=== PATIENT | male | born 1990 | race Caucasian/White ===

== ENCOUNTER 2024-03-19 09:13 | Outpatient (REF) | payer OTHER, SELFPAY ==
[2024-03-19 09:56] LABS: MANUAL DIFF FLAG NO
[2024-03-19 10:05] LABS: Basophils Absolute Auto 0.1 X10*3/uL (0.0-0.2); Basophils Percent Auto 0.8 % (0-2); Eosinophils Absolute Auto 0.3 X10*3/uL (0.0-0.4); Eosinophils Percent Auto 3.5 % (0-4); Hematocrit 45.6 % (42.0-52.0); Hemoglobin 15.4 g/dl (14.0-18.0); Imm Gran Abs Auto 0.07 X10*3/uL (0.00-0.03); Imm Gran Pct Auto 0.8 % (0.0-0.4); Lymphocytes Absolute Auto 3.1 X10*3/uL (1.2-4.9); Lymphocytes Percent Auto 37.2 % (20-40); Mean Corpuscular HGB Conc 33.8 g/dl (31.0-36.0); Mean Corpuscular Hemoglobin 29.1 pg (27.0-33.0); Mean Platelet Volume 9.4 fL (9.4-12.4); Monocytes Absolute Auto 0.8 X10*3/uL (0.1-1.2); Monocytes Percent Auto 9.2 % (2-11); Neutrophils Absolute Auto 4.1 x10*3/uL (2.0-8.3); Neutrophils Percent Auto 48.5 % (45-73); Platelet Count 386 X10*3/uL (160-400); Red Cell Distribution Width 12.2 % (11.0-16.0); White Blood Count 8.4 X10*3/uL (4.8-10.8)
[2024-03-19 14:20] LABS: Albumin Level 4.7 g/dL (3.5-5.0); Alkaline Phosphatase 88 U/L (39-117); Anion Gap 11 (12-20); Aspartate Amino Transferase 40 U/L (5-37); Bilirubin Total 0.8 mg/dL (0.0-1.0); Blood Urea Nitrogen 13 mg/dL (9-16); Calcium 9.9 mg/dL (8.4-10.2); Carbon Dioxide 27 mmol/L (22-29); Chloride 106 mmol/L (96-108); Cholesterol 191 mg/dL (<200); Estimated Glomerular Filt Rate > 60; Glucose Fasting 99 mg/dL (60-99); HDL Cholesterol 45 mg/dL (>40); LDL Cholesterol Calculated 106 mg/dL (<100); Potassium 4.3 mmol/L (3.3-5.1); Sodium 140 mmol/L (135-145); Total Protein 7.6 g/dL (6.5-8.0); Triglycerides 204 mg/dL (<150)
[2024-03-19 14:37] LABS: Alanine Aminotransferase 87 U/L (0-40)
== END 2024-03-19 09:14 | disposition home or self-care (01) ==
LOC: HO.HMGCLDS 09:13
PROVIDERS: PCP Internal Medicine; Visit Provider Internal Medicine
DX: Z00.00 Encounter for general adult medical examination without abnormal findings (principal); R53.83 Other fatigue; E78.5 Hyperlipidemia, unspecified
CPT/HCPCS: 36415; 80053; 80061; 85025

== ENCOUNTER 2024-05-21 07:41 | Outpatient (AMB) | payer OTHER, SELFPAY ==
--- NOTE | 2024-05-21 08:02 | A.OFFVIS_ITS ---
Intake Visit Reasons: history of kidney stones Intake Note: New Patient presents for initial visit for kidney stones Urology Medications: none Blood Thinner: none Slide Developer Required: No Accompanied by: Self / Same As Patient Allergies No Known Allergies Allergy (Verified 05/21/24 08:28) Medication List - Last Reconciled 05/21/24 by JENNIFER Bains fluticasone propionate 50 mcg/actuation intranasal omeprazole mg PO HPI Comments Details: Baron is a very pleasant 33-year-old male patient of Dr. Smiley. He has a past medical history of obesity, nephrolithiasis, and allergic rhinitis. He presents to the office today as a new patient for nephrolithiasis. In discussion with the patient today he reports having had a longstanding history of nephrolithiasis over the last 6-7 years however has only followed up with his PCP regarding this issue and most recently recommendations were made for urology referral for further assessment evaluation. He currently denies any bothersome urinary issues or concerns however describes having had an episode of passage of stone a few weeks ago. In office urinalysis results reviewed with the patient today. He denies any previous surgical history of nephrolithiasis. We discussed at length potential causes of nephrolithiasis as well as further workup to include imaging, [facility], and labs. He denies urinary urgency, urinary frequency, incontinence, nocturia, hematuria, dysuria, foul smelling urine, changes to urinary stream, flank pain, fever, and or chills.He is happy with his current voiding parameters. He reports to be drinking approximately 60 oz of water a day. We discussed obtaining renal ultrasound for further assessment evaluation. We also discussed stone prevention at length. All questions were answered. [facility] Medical History History of kidney stones Allergic rhinitis Obesity Review of Systems Const All systems reviewed & are unremarkable except as noted in HPI and below Physical Exam Const General: cooperative, healthy appearing, comfortable, no acute distress, well developed, alert and awake Orientation/consciousness: patient oriented x3 Limitations: no limitations HEENT Head: Yes normal to inspection, Yes normocephalic and Yes atraumatic Ears: hearing grossly normal bilaterally Eyes General: appearance normal, both eyes and all related structures Neck Neck: Yes normal visual inspection and Yes trachea midline Chest Chest palpation & inspection: normal inspection of the chest Resp Effort & Inspection: normal respiratory effort and able to speak in complete sentences Cardio Rate: regular rate GI Inspection: Yes normal to inspection General: Yes no CVA tenderness Back/Spine/Pelvis Back: no CVA tenderness Skin General skin exam: no rashes or lesions noted Neuro General: patient oriented x3 Extrem General: Yes normal to inspection Psych Appearance: grossly normal and well kempt Mental Status: mental status grossly normal Speech and movement: Normal speech and movement present and Clear speech present Affect: normal affect Attitude: cooperative Thought process: Normal thought process present Thought content: Normal thought content present Insight: Fair insight present (Psych) Judgement: Fair judgement present (Psych) Results AMB Urinalysis, Automated UA Leukoctes 0 Emma/uL Last Edit by [employer] on 05/21/24 08:11 UA Nitrite Last Edit by [employer] on 05/21/24 08:11 UA Urobilinogen 0.2 mg/dL Last Edit by [employer] on 05/21/24 08:11 UA Protein 15 mg/dL Last Edit by [employer] on 05/21/24 08:11 UA pH 6.0 Last Edit by [employer] on 05/21/24 08:11 UA Blood 10 Wale/uL Last Edit by [employer] on 05/21/24 08:11 UA Specific [place] 1.020 Last Edit by [employer] on 05/21/24 08:11 UA Ketone Last Edit by [employer] on 05/21/24 08:11 UA Bilirubin 0 mg/dL Last Edit by [employer] on 05/21/24 08:11 UA Glucose 0 mg/dL Last Edit by [employer] on 05/21/24 08:11 Results Reviewed Results Reviewed: Laboratory Last Values Urine pH (Auto) 6.0 05/21/24 08:03 Specific [place] (Auto) 1.020 05/21/24 08:03 Urine Protein (Auto) 15 mg/dL 05/21/24 08:03 Glucose (UA)(Auto) 0 mg/dL 05/21/24 08:03 Urine Blood (Auto) 10 Wale/uL 05/21/24 08:03 Urine Bilirubin (Auto) 0 mg/dL 05/21/24 08:03 Urine Urobilinogen (Auto) 0.2 mg/dL 05/21/24 08:03 Leukocyte Esterase (Auto) 0 Emma/uL 05/21/24 08:03 Assessment & Plan Assessment & Plan (1) Nephrolithiasis: Code(s): N20.0 - Calculus of kidney Category: Medical Plan In office urinalysis results reviewed with the patient today; as noted above. We discussed at length potential causes of nephrolithiasis as well as further workup. Discussed, educated, and stressed the importance of adequate hydration relation to nephrolithiasis as well as overall health and well-being. Patient currently denies any bothersome urinary issues. He reports be happy with current voiding parameters. Will obtain renal ultrasound. Discussed adding 1 oz of lemon juice to water daily. Follow-up in 1-3 months with imaging to be completed prior; or sooner with any issues, concerns, and or questions. Orders: Orders US renal BI Today N20.0 - Calculus of kidney AMB Urinalysis Automated Today Z13.9 - Encounter for screening, unspecified Patient Instructions: The patient had an opportunity to ask questions regarding the treatment plan. All questions were answered. Physical exam, labs, and imaging were discussed and reviewed in detail. As well as risks, benefits, and discussion of treatment choices. No major barriers to understanding were identified. The patient expressed understanding and agreement with the above treatment plan. The patient was made aware they should contact our office by phone for worsening of their current condition, the appearance of new symptoms, or with any questions or concerns. Compliance is encouraged with any medications and follow up testing that is ordered. It is a privilege to be allowed the opportunity to participate in? your urological care.? Again, if you have any questions or concerns If you have any questions or concerns please do not hesitate to contact me. The office is [phone]. This note is constructed using voice recognition software. While every effort has been made to ensure accuracy potash flaker errors may have been included. Yours sincerely, Ce Calixto PREFORM MACHINE OPERATOR- Coding Level of Care Code New Pt Level 3 (77937) Diagnoses Nephrolithiasis N20.0
== END 2024-05-21 08:24 | disposition home or self-care (01) ==
LOC: HO.HUSH 07:42
PROVIDERS: PCP Internal Medicine; Visit Provider Nurse Practitioner Family
DX: N20.0 Calculus of kidney (principal); Z13.9 Encounter for screening, unspecified
CPT/HCPCS: 99203

== ENCOUNTER → 2024-05-21 07:41 | Outpatient (BNVA) | payer OTHER, SELFPAY | PROVIDERS: PCP Internal Medicine; Visit Provider Nurse Practitioner Family | DX: N20.0 Calculus of kidney (principal) | CPT/HCPCS: 81003 ==

== ENCOUNTER 2024-07-22 07:57 | Outpatient (REF) | payer OTHER, SELFPAY ==
--- NOTE | ~2024-07-22 | US_ITS ---
EXAMINATION: US RETROPERITONEAL LIMITED (RENAL ONLY) CLINICAL INFORMATION: Calculus of kidney. COMPARISON: None available. TECHNIQUE: Real-time imaging of the kidneys. FINDINGS: RIGHT KIDNEY: 12.5 x 5.6 x 6.0 cm (SAG x AP x TRV). The kidney is normal in size, contour, and echogenicity. Renal cortical thickness is normal. No focal parenchymal lesions. No hydronephrosis. There are 4 nonobstructing calculi identified throughout the kidney, largest in the upper pole measuring 8 mm, second largest in the lower pole measuring 7 mm. LEFT KIDNEY: 11.5 x 6.3 x 4.7 cm (SAG x AP x TRV). The kidney is normal in size, contour, and echogenicity. Renal cortical thickness is normal. No focal parenchymal lesions. No hydronephrosis. There are 4 nonobstructing calculi identified throughout the kidney, largest in the midpole measuring 8 mm, and second largest in the lower pole measuring 8 mm. US/US renal BI IMPRESSION: Bilateral nonobstructing nephrolithiasis. No hydronephrosis. Electronically signed by: Liborio Carrillo MD 07/22/2024 10:06 AM EDT
== END 2024-07-22 07:58 | disposition home or self-care (01) ==
LOC: HO.US 07:57
PROVIDERS: PCP Internal Medicine; Visit Provider Nurse Practitioner Family
DX: N20.0 Calculus of kidney (principal)
CPT/HCPCS: 76775

== ENCOUNTER → 2024-07-22 07:59 | Outpatient (BNV) | payer OTHER, SELFPAY | PROVIDERS: PCP Internal Medicine; Visit Provider Radiology Diagnostic Radiology | DX: N20.0 Calculus of kidney (principal) | CPT/HCPCS: 76775 ==

== ENCOUNTER 2024-08-07 07:33 | Outpatient (AMB) | payer OTHER, SELFPAY ==
--- NOTE | 2024-08-07 07:47 | A.OFFVIS_ITS ---
Intake Visit Reasons: 2 month US(set) Intake Note: Patient presents today for follow up on: kidney stones and ultrasound results Imaging Completed: 07/22/24 Urology Medications: none Blood Thinner: none Ornamental Ironworker Required: No Accompanied by: Self / Same As Patient Allergies No Known Allergies Allergy (Verified 08/07/24 08:13) Medication List - Last Reconciled 08/07/24 by JENNIFER Bains fluticasone propionate 50 mcg/actuation intranasal melatonin mg PO PRN omeprazole mg PO HPI Comments Details: Baron is a very pleasant 33-year-old male patient of . He has a past medical history of obesity, nephrolithiasis, and allergic rhinitis. He presents to the office today for follow-up. Of note, patient was seen approximately 2 months ago as a new patient for nephrolithiasis at which time a renal ultrasound was ordered for further assessment evaluation. These results were reviewed and communicated with the patient today 08/04 bilateral kidneys are normal in size, contour, and echogenicity. Renal cortical thickness is normal. No focal lesions or hydronephrosis noted bilaterally. There are multiple nonobstructing calculi throughout both kidneys largest measuring 8 mm. He discusses his long standing history of nephrolithiasis however never requiring surgical intervention. We did discuss further treatment options and risks and benefits of these treatment options to include ESWL verses ureteroscopy verses surveillance monitoring. He does feel he has episodes of bilateral flank pain however feels they are infrequent and is managing well independently. We will continue with surveillance monitoring at this time. In office urinalysis results reviewed with the patient today. He otherwise denies any bothersome urinary issues. He denies urinary urgency, urinary frequency, incontinence, nocturia, hematuria, dysuria, foul smelling urine, changes to urinary stream, flank pain, fever, and or chills. He is happy with his current voiding parameters. He reports to be drinking approximately 60-80 oz of water a day and has been adding lemon juice as discussed. We also discussed stone prevention at length. All questions were answered. He otherwise offers no other issues or concerns at this time. [facility] Medical History History of kidney stones Allergic rhinitis Obesity Review of Systems Const All systems reviewed & are unremarkable except as noted in HPI and below Physical Exam Const General: cooperative, healthy appearing, comfortable, no acute distress, well developed, alert and awake Orientation/consciousness: patient oriented x3 Limitations: no limitations HEENT Head: Yes normal to inspection, Yes normocephalic and Yes atraumatic Ears: hearing grossly normal bilaterally Eyes General: appearance normal, both eyes and all related structures Neck Neck: Yes normal visual inspection and Yes trachea midline Chest Chest palpation & inspection: normal inspection of the chest Resp Effort & Inspection: normal respiratory effort and able to speak in complete sentences Cardio Rate: regular rate GI Inspection: Yes normal to inspection General: Yes no CVA tenderness Back/Spine/Pelvis Back: no CVA tenderness Skin General skin exam: no rashes or lesions noted Neuro General: patient oriented x3 Extrem General: Yes normal to inspection Psych Appearance: grossly normal and well kempt Mental Status: mental status grossly normal Speech and movement: Normal speech and movement present and Clear speech present Affect: normal affect Attitude: cooperative Thought process: Normal thought process present Thought content: Normal thought content present Insight: Fair insight present (Psych) Judgement: Fair judgement present (Psych) Results AMB Urinalysis, Automated UA Leukoctes 0 Emma/uL Last Edit by Romeo Choudhury on 08/07/24 08:00 UA Nitrite Last Edit by Romeo Choudhury on 08/07/24 08:00 UA Urobilinogen 0.2 mg/dL Last Edit by Romeo Choudhury on 08/07/24 08:00 UA Protein 0 mg/dL Last Edit by Romeo Choudhury on 08/07/24 08:00 UA pH 6.0 Last Edit by Romeo Choudhury on 08/07/24 08:00 UA Blood 0 Wale/uL Last Edit by Romeo Choudhury on 08/07/24 08:00 UA Specific [place] 1.015 Last Edit by Romeo Choudhury on 08/07/24 08:00 UA Ketone Last Edit by Romeo Choudhury on 08/07/24 08:00 UA Bilirubin 0 mg/dL Last Edit by Romeo Choudhury on 08/07/24 08:00 UA Glucose 0 mg/dL Last Edit by Romeo Choudhury on 08/07/24 08:00 Results Reviewed Results Reviewed: Laboratory Last Values Urine pH (Auto) 6.0 08/07/24 07:52 Specific [place] (Auto) 1.015 08/07/24 07:52 Urine Protein (Auto) 0 mg/dL 08/07/24 07:52 Glucose (UA)(Auto) 0 mg/dL 08/07/24 07:52 Urine Blood (Auto) 0 Wale/uL 08/07/24 07:52 Urine Bilirubin (Auto) 0 mg/dL 08/07/24 07:52 Urine Urobilinogen (Auto) 0.2 mg/dL 08/07/24 07:52 Leukocyte Esterase (Auto) 0 Emma/uL 08/07/24 07:52 Date of Service: 07/22/24 Procedure(s): US renal BI FINDINGS: RIGHT KIDNEY: 12.5 x 5.6 x 6.0 cm (SAG x AP x TRV). The kidney is normal in size, contour, and echogenicity. Renal cortical thickness is normal. No focal parenchymal lesions. No hydronephrosis. There are 4 nonobstructing calculi identified throughout the kidney, largest in the upper pole measuring 8 mm, second largest in the lower pole measuring 7 mm. LEFT KIDNEY: 11.5 x 6.3 x 4.7 cm (SAG x AP x TRV). The kidney is normal in size, contour, and echogenicity. Renal cortical thickness is normal. No focal parenchymal lesions. No hydronephrosis. There are 4 nonobstructing calculi identified throughout the kidney, largest in the midpole measuring 8 mm, and second largest in the lower pole measuring 8 mm. IMPRESSION: Bilateral nonobstructing nephrolithiasis. No hydronephrosis. Assessment & Plan Assessment & Plan (1) Nephrolithiasis: Code(s): N20.0 - Calculus of kidney Category: Medical Plan In office urinalysis results reviewed with the patient today; as noted above. Recent renal imaging results reviewed with the patient today; as noted above. We discussed further treatment options of stone burden to include ESWL versus ureteroscopy verses surveillance monitoring; risks and benefits of these interventions were discussed Will continue with surveillance monitoring. Discussed, educated, and stressed the importance of adequate hydration relation to nephrolithiasis as well as overall health and well-being. Start vitamin B6 as discussed and prescribed Continue adding 1 oz of lemon juice to water daily. He currently denies any bothersome urinary issues or concerns. He reports be happy with current voiding parameters. Follow-up in 4-[address] [facility]; or sooner with any issues, concerns, and or questions. Orders: Orders CT kidney stone 4 Months N20.0 - Calculus of kidney AMB Urinalysis Automated Today Z13.9 - Encounter for screening, unspecified Medications: New pyridoxine (vitamin B6) 100 mg PO DAILY 90 days 90 tabs 3RF N20.0 - Calculus of kidney Patient Instructions: The patient had an opportunity to ask questions regarding the treatment plan. All questions were answered. Physical exam, labs, and imaging were discussed and reviewed in detail. As well as risks, benefits, and discussion of treatment choices. No major barriers to understanding were identified. The patient expressed understanding and agreement with the above treatment plan. The patient was made aware they should contact our office by phone for worsening of their current condition, the appearance of new symptoms, or with any questions or concerns. Compliance is encouraged with any medications and follow up testing that is ordered. It is a privilege to be allowed the opportunity to participate in? your urological care.? Again, if you have any questions or concerns If you have any questions or concerns please do not hesitate to contact me. The office is [phone]. This note is constructed using voice recognition software. While every effort has been made to ensure accuracy monorail charger operator errors may have been included. Yours sincerely, JENNIFER Bains Coding Level of Care Code Est Pt Level 4 (02266) Diagnoses Nephrolithiasis N20.0
== END 2024-08-07 08:24 | disposition home or self-care (01) ==
LOC: HO.HUSH 07:34
PROVIDERS: PCP Internal Medicine; Visit Provider Nurse Practitioner Family
DX: N20.0 Calculus of kidney (principal); Z13.9 Encounter for screening, unspecified
CPT/HCPCS: 99214

== ENCOUNTER → 2024-08-07 07:33 | Outpatient (BNVA) | payer OTHER, SELFPAY | PROVIDERS: PCP Internal Medicine; Visit Provider Nurse Practitioner Family | DX: N20.0 Calculus of kidney (principal); Z13.9 Encounter for screening, unspecified | CPT/HCPCS: 81003 ==

== ENCOUNTER 2024-09-17 14:05 | Outpatient (AMB) | payer OTHER, SELFPAY ==
--- NOTE | 2024-09-17 14:20 | A.OFFPC_ITS ---
Vital Signs 09/17/24 14:52 Height 5 ft 8 in Weight 262 lb 0.2 oz BMI 39.8 BP 122/68 Blood Pressure Location Rt brachial Pulse 78 Pulse Source Pulse Oximeter Temp 99 F Pulse Oximetry (%) 100 Intake Visit Reasons: Establish Care Intake Note: Seeing Urology in [place] to have surgery to remove kidney stones, every few days he says he gets a chest flutter. Would also like to talk about the weight loss drug. Allergies No Known Allergies Allergy (Verified 09/17/24 14:58) Medication List - Last Reconciled 09/17/24 by Linda Durán PA-C fluticasone propionate 50 mcg/actuation intranasal melatonin mg PO PRN omeprazole mg PO pyridoxine (vitamin B6) 100 mg PO DAILY 90 days Tobacco use date assessed: 09/17/24 Dental Screening Dental Screen Date: 09/17/24 Did you have a dental visit in the last 12 months?: Yes Did you have a dental problem in the last 6 months where you did not have access to dental care?: No Was dental information given to patient?: No HPI Establish Care HPI Details The patient is a 33-year-old male presenting for a new patient visit and management of chronic conditions. The patient reports a history of insomnia for which he takes melatonin. He has not undergone a sleep study and feels rested upon waking despite difficulty falling asleep. He is currently on omeprazole for Gastroesophageal Reflux Disease (GERD). The patient has a history of nephrolithiasis and is under nephrology care. He takes vitamin B6 for kidney stones and reports having multiple stones on both sides, with some as large as 8 mm. His recent blood work showed elevated liver enzymes with AST at 40 and ALT at 87, and elevated triglycerides at 204 mg/dL. His LDL cholesterol was 106 mg/dL, which is slightly above the desired level. The patient is prediabetic, with an A1c indicating borderline levels. He has been advised to manage his diet to prevent progression to diabetes. He reports experiencing heart palpitations once or twice a year, without associated chest pain or shortness of breath. He has been referred for an outpatient EKG and a three-day Holter monitor to further evaluate these symptoms. [facility] Medical History (Updated 09/18/24 @ 13:16 by Linda Durán PA-C) Hyperlipidemia Hypertriglyceridemia Pre-diabetes GERD (gastroesophageal reflux disease) Insomnia Obesity (BMI 30-39.9) Body mass index [BMI] 39.0-39.9, adult Establishing care with new doctor, encounter for Heart palpitations History of kidney stones Allergic rhinitis Obesity Social History Housing: House Patient Tobacco Use Status: Former Tobacco user Tobacco use type: Cigarette Cigarettes Per Day: 2 Years Smoked: 5 or 6 years e-Cigarette/Vaping Use: Former Use service: No Questionnaire PHQ-9 Over the last 2 weeks, how often have you been bothered by any of the following problems? 1. Little interest or pleasure in doing things: not at all 2. Feeling down, depressed, or hopeless: not at all 3. Trouble falling or staying asleep, or sleeping too much: not at all 4. Feeling tired or having little energy: not at all 5. Poor appetite or overeating: not at all 6. Feeling bad about yourself - or that you are a failure or have let yourself or your family down: not at all 7. Trouble concentrating on things, such as reading the newspaper or watching television: not at all 8. Moving or speaking so slowly that other people could have noticed. Or the opposite - being so fidgety or restless that you have been moving around a lot more than usual: not at all 9. Thoughts that you would be better off or of hurting yourself in some way: not at all Total score: 0 Depression Screening Interpretation: Negative Depression Screening Done: Yes 18696 - PHQ-9 Billing: Yes Source: Developed by Drs. Sean Mortensen, Daniela Parr, Gautam Howard and colleagues, with an educational atiya from [employer]. Thrive Questionnaire Date Thrive assessed: 09/17/24 I am a: Patient What is your living situation today?: I have a steady place to live Within the past 12 months, did the food you bought not last and you didn't have the money to get more?: Never true Within the past 12 months, did you worry whether your food would run out before you got money to buy more?: Never true Do you have trouble paying for medicines?: No Do you have trouble getting transportation to medical appointments?: No Do you have trouble paying your heating and electricity bill?: No Do you have trouble taking care of your child, family member or friend?: No Do you have trouble with day-to-day activities such as bathing, preparing meals, shopping, managing finances, etc.?: No Are you currently unemployed and looking for a job?: No Are you interested in more education?: No THRIVE Score: 0 AUDIT C Alcohol Use Questionnaire (AUDIT-C) 1. How often do you have a drink containing alcohol?: 2-4 times a month 2. How many drinks containing alcohol do you have on a typical day when you are drinking?: 1 or 2 3. How often do you have six or more drinks on one occasion?: Never Total Score: 2 Score Reviewed/Action Taken: No GATO-7 AMB Questionnaire GATO-7 Date GATO - 7 assessed: 09/17/24 Feeling nervous, anxious, or on edge: 0 = Not at all Not being able to stop or control worryin = Not at all Worrying too much about different things: 0 = Not at all Trouble relaxin = Not at all Being so restless that it is hard to sit still: 0 = Not at all Becoming easily annoyed or irritable: 0 = Not at all Feeling afraid as if something awful might happen: 0 = Not at all Total GATO-7 score (0-4 normal; 5-9 mild; 10-14 moderate; 15-21 severe): 0 Source: Developed by Drs. Sean Mortensen, Daniela Parr, Gautam Howard and colleagues, with an educational atiya from [employer]. GATO-7 Assessment Billing GATO-7 Assessment Tool: GATO-7 Assessment 14291 Review of Systems Const Details: - General: Denies unintentional weight gain or weight loss. - Cardiovascular: Reports heart palpitations once or twice a year. Denies chest pain or shortness of breath. - Gastrointestinal: Denies abdominal pain. Reports use of omeprazole for GERD. - Genitourinary: Reports history of nephrolithiasis. Denies hematuria. Physical exam (Primary Care) Vital Signs: Last Vital Signs Temp 99 F 09/17/24 14:52 Pulse 78 09/17/24 14:52 BP 122/68 09/17/24 14:52 Pulse Ox 100 07/08/25 14:52 Care Plan Goal for BP management: <140/90 at Goal BMI result Body Mass Index 39.8 BMI Assessment/Plan discussion: High BMI High, discussed plan: lifestyle, weight reduction, dietary, physical activity and alcohol moderation Tobacco/Smoking Status: Tobacco use Status Tobacco use date assessed 09/17/24 09/17/24 14:50 Patient Tobacco Use Status Former Tobacco user 09/17/24 14:50 Tobacco use type Cigarette 09/17/24 14:50 e-Cigarette/Vaping Use Former Use 09/17/24 14:50 PHQ-9: PHQ-9 Score PHQ-9: Total score 0 09/17/24 15:19 Depression Screening Interpretation: Negative Thrive Assessment: Date of Thrive Assessment Date Thrive assessed 09/17/24 09/17/24 14:50 Const Other: Appearance: Alert. Oriented X3. No acute distress. Head: Normal external exam. Normocephalic. Atraumatic. Eyes: Pupils are equal, round, and reactive to light. Extraocular movements intact. Conjunctiva and sclera normal. Eyelids normal. Ears: External auditory canal normal. Tympanic membranes normal. Throat: Pharynx normal. Uvula midline. Moist mucous membranes. Neck: Normal inspection. Neck supple. Full range of motion. No adenopathy. Thyroid Normal. No meningeal signs. No neck mass noted. Cardiovascular: Normal heart rate and rhythm. Heart sound normal. No murmurs noted. Pulses normal throughout. Respiratory: No respiratory distress. Painless inspiration. Breath sounds normal. No wheezes/rales/rhonchi noted. Chest nontender. No accessory muscle usage noted or decreased air movement noted. Abdomen: Soft and nontender. Bowel sounds normal in all 4 quadrants. No distention noted. No organomegaly noted. No visible injury noted. Back: No costovertebral angle tenderness. Full range of motion noted. Skin: Skin warm and dry. Normal skin color. Normal skin turgor. No rashes/lesions/lacerations noted. Extremities: No lower extremity edema. Extremities exhibit normal range of motion. Extremities nontender. Neuro: Oriented X 3. No motor deficit. No sensory deficit. Reflexes normal. Results AMB Hemoglobin A1c AMB Hemoglobin A1c 5.6 % Last Edit by SENG Stanford on 09/17/24 15:19 Results Reviewed Results Reviewed: Laboratory Last Values Hgb A1c (Clinic) 5.6 % (4.0-6.0) 09/17/24 15:17 - Labs: Normal CBC, elevated AST (40) and ALT (87), elevated triglycerides (204 mg/dL), LDL cholesterol (106 mg/dL). - Imaging: Renal ultrasound showed bilateral nephrolithiasis with stones up to 8 mm. Coding Level of Care Code New Pt Level 5 (42555) Complex EM visit Add On G2211 Diagnoses Establishing care with new doctor, encounter for Z76.89 Insomnia G47.00 GERD (gastroesophageal reflux disease) K21.9 Nephrolithiasis N20.0 Pre-diabetes R73.03 Heart palpitations R00.2 Body mass index [BMI] 39.0-39.9, adult Z68.39 Hypertriglyceridemia E78.1 Hyperlipidemia E78.5 Additional Codes GATO-7 Assessment Billing - GATO-7 Assessment Tool: GATO-7 Assessment 07048 ([id number]) PHQ-9 - 81124 - PHQ-9 Billing: Yes ([id number]) Assessment & Plan Assessment & Plan (1) Establishing care with new doctor, encounter for: Code(s): Z76.89 - Persons encountering health services in other specified circumstances Category: Medical (2) Insomnia: Code(s): G47.00 - Insomnia, unspecified Category: Medical Plan: The patient is advised to continue using melatonin for insomnia. No sleep study is planned at this time as the patient reports feeling rested upon waking. Condition is chronic and stable continue to monitor. (3) GERD (gastroesophageal reflux disease): Code(s): K21.9 - Gastro-esophageal reflux disease without esophagitis Category: Medical Plan: The patient is advised to continue omeprazole for management of GERD symptoms. Condition is chronic and stable will continue to monitor. (4) Nephrolithiasis: Code(s): N20.0 - Calculus of kidney Category: Medical Plan: The patient is under nephrology care for nephrolithiasis and takes vitamin B6. He is advised to continue current management and follow up with nephrology as needed. Condition is chronic and stable will continue to monitor. (5) Pre-diabetes: Code(s): R73.03 - Prediabetes Category: Medical Plan: The patient is advised to manage diet and exercise to prevent progression to diabetes. Referral to weight management and consideration of metformin were discussed. Condition is chronic and stable will continue to monitor. (6) Heart palpitations: Code(s): R00.2 - Palpitations Category: Medical Plan: The patient is referred for an outpatient EKG and a three-day Holter monitor to evaluate heart palpitations. Follow-up is planned based on results. (7) Body mass index [BMI] 39.0-39.9, adult: Code(s): Z68.39 - Body mass index [BMI] 39.0-39.9, adult Category: Medical Plan: Patient has improved diet and exercise regimen. Referral to handle rounder operator and weight management program. Condition is chronic and stable will continue to monitor. (8) Hypertriglyceridemia: Code(s): E78.1 - Pure hyperglyceridemia Category: Medical Plan: The patient is advised to manage diet to address elevated triglycerides and LDL cholesterol. Referral to a handle rounder operator and weight management program is planned. Condition is chronic and stable will continue to monitor. (9) Hyperlipidemia: Code(s): E78.5 - Hyperlipidemia, unspecified Category: Medical Plan: The patient is advised to manage diet to address elevated triglycerides and LDL cholesterol. Referral to a handle rounder operator and weight management program is planned. Condition is chronic and stable will continue to monitor. Plan Plan Patient was informed and verbally consented to the use of an ambient scribe for clinic note documentation during this visit. 1. Insomnia The patient is advised to continue using melatonin for insomnia. No sleep study is planned at this time as the patient reports feeling rested upon waking. 2. Gastroesophageal Reflux Disease (Gerd) The patient is advised to continue omeprazole for management of GERD symptoms. 3. Nephrolithiasis The patient is under nephrology care for nephrolithiasis and takes vitamin B6. He is advised to continue current management and follow up with nephrology as needed. 4. Hyperlipidemia The patient is advised to manage diet to address elevated triglycerides and LDL cholesterol. Referral to a handle rounder operator and weight management program is planned. 5. Prediabetes The patient is advised to manage diet and exercise to prevent progression to diabetes. Referral to weight management and consideration of metformin were discussed. 6. Heart Palpitations The patient is referred for an outpatient EKG and a three-day Holter monitor to evaluate heart palpitations. Follow-up is planned based on results. During the visit, we discussed the management of insomnia with melatonin and the continuation of omeprazole for GERD. The patient is under nephrology care for nephrolithiasis and will continue current management. We reviewed his recent lab results, noting elevated triglycerides and LDL cholesterol, and discussed dietary management and referrals to weight management and a handle rounder operator. The patient is prediabetic, and we discussed lifestyle modifications and the potential use of metformin. For heart palpitations, an outpatient EKG and a three-day Holter monitor were recommended. Follow-up will be based on these results. Orders: Orders PSA,Total (Free>4and<10) 09/17/24 Z00.00 - Encounter for general adult medical examination without abnormal findings Vitamin D 25-OH Total 09/17/24 Z00.00 - Encounter for general adult medical examination without abnormal findings TSH reflex Free T4 09/17/24 Z00.00 - Encounter for general adult medical examination without abnormal findings Vitamin B12 and Folate 09/17/24 Z00.00 - Encounter for general adult medical examination without abnormal findings ECG 3 day holter monitor 09/17/24 R00.2 - Palpitations ECG 12 lead EKG 09/17/24 R00.2 - Palpitations, Z76.89 - Persons encountering health services in other specified circumstances AMB Hemoglobin A1c 09/17/24 Z13.9 - Encounter for screening, unspecified Referrals Vocational Technical Education Director Nutrition Referral E66.9 - Obesity, unspecified Medical Weight Management Referral E66.9 - Obesity, unspecified, Z68.39 - Body mass index [BMI] 39.0-39.9, adult Medications: Changed From omeprazole PO To omeprazole 20 mg PO ONCE 90 caps 3RF Patient Instructions: - Continue taking melatonin for insomnia. - Continue omeprazole for GERD management. - Follow up with nephrology for kidney stones management. - Manage diet to address elevated cholesterol and triglycerides. - Attend referrals to weight management and handle rounder operator. - Monitor blood sugar levels and manage diet to prevent diabetes progression. - Complete outpatient EKG and three-day Holter monitor for heart palpitations.
[2024-09-17 14:52] VITALS: BP 122/68; PULSE 78; TEMP 37.2; O2SAT 100; BMI 39.8
== END 2024-09-17 15:20 | disposition home or self-care (01) ==
LOC: HO.HMCSH 14:05
PROVIDERS: PCP Internal Medicine; Visit Provider Physician Assistant Medical
DX: Z13.9 Encounter for screening, unspecified (principal)

== ENCOUNTER → 2024-09-17 14:05 | Outpatient (BNVA) | payer OTHER, SELFPAY | PROVIDERS: PCP Internal Medicine; Visit Provider Physician Assistant Medical | DX: K21.9 Gastro-esophageal reflux disease without esophagitis (principal); G47.00 Insomnia, unspecified; N20.0 Calculus of kidney; R00.2 Palpitations; R73.03 Prediabetes; E78.1 Pure hyperglyceridemia; E78.5 Hyperlipidemia, unspecified; E66.9 Obesity, unspecified; Z68.39 Body mass index [BMI] 39.0-39.9, adult; Z76.89 Persons encountering health services in other specified circumstances; Z79.899 Other long term (current) drug therapy | CPT/HCPCS: 83036; 96127 ==

== ENCOUNTER 2024-09-26 06:34 | Outpatient (REF) | payer OTHER, SELFPAY ==
[2024-09-26 10:56] LABS: PSA,Total (Free>4and<10) 0.74 ng/mL (0.00-4.00)
[2024-09-26 11:09] LABS: Folate 9.8 ng/mL (> or = 4.0); Vitamin B12 454 pg/mL (200-900)
== END 2024-09-26 06:35 | disposition home or self-care (01) ==
LOC: HO.HMGCLDS 06:34
PROVIDERS: PCP Physician Assistant Medical; Visit Provider Physician Assistant Medical
DX: Z00.00 Encounter for general adult medical examination without abnormal findings (principal); Z12.5 Encounter for screening for malignant neoplasm of prostate
CPT/HCPCS: 36415; 82306; 82607; 82746; 84153; 84443

== ENCOUNTER → 2024-09-30 08:08 | Outpatient (REF) | payer OTHER, SELFPAY ==
--- NOTE | 2024-09-30 08:10 | HM_ITS ---
Conclusion: 1. Patient was monitored for total period of 2 days and 21 hours 2. Baseline was normal sinus rhythm with average heart of 65 beats per minute 3. No significant pauses with total of 17 PACs noted accounting for very rare PACs 4. Patient marked the counter 3 times with symptoms correlating with isolated PACs. MTDD
--- NOTE | 2024-09-30 08:10 | ECG_ITS ---
Test Reason : palps Blood Pressure : */* mmHG Vent. Rate : 82 BPM Atrial Rate : 82 BPM P-R Int : 156 ms QRS Dur : 92 ms QT Int : 372 ms P-R-T Axes : 21 39 47 degrees QTcB Int : 434 ms Normal sinus rhythm Normal ECG No previous ECGs available Referred By: Linda Durán Electronically Signed By: Lanre Esteves
--- OUTSIDE RECORDS SUMMARY | 2024-09-30 08:11 | XMS_ITS | Clinical Summary ---
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 Not on karely e 07/08/2022 Are you concerned about learning? Not on file 07/08/2022 No 07/08/2022 No 07/08/2022 Digital Access Answer Date Recorded No 08/09/2022 No 08/09/2022 No 08/09/2022 Reliable internet access at home? Not on file 08/09/2022 Device with a working camera? Not on file Sex and Gender Information Value Date Recorded Sex Assigned at Not on file Legal Sex Male 9:11 AM EDT Gender Identity Not on file Sexual Orientation Not on file Plan of Treatment Not on file Medical Devices Not on file Insurance [email or web address] [facility] PPO [email or web address] [facility] PPO Additional Source Comments The information contained in this document represents components of the legal health record. It is not the complete legal health record.[facility]
== END ==
LOC: HO.CARD 08:08
PROVIDERS: Visit Provider Physician Assistant Medical
DX: R00.2 Palpitations (principal); Z76.89 Persons encountering health services in other specified circumstances
CPT/HCPCS: 93005; 93242

== ENCOUNTER → 2024-09-30 08:10 | Outpatient (BNV) | payer OTHER, SELFPAY | PROVIDERS: Visit Provider Internal Medicine Cardiovascular Disease | DX: R00.2 Palpitations (principal) | CPT/HCPCS: 93010; 93244 ==

== ENCOUNTER 2024-11-18 09:13 | Outpatient (AMB) | payer OTHER, SELFPAY ==
--- NOTE | 2024-11-18 09:17 | MHC.PC.OV ---
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 Accompanied by: Self / Same As Patient Allergies No Known Allergies Allergy (Verified 11/18/24 10:35) Medication List - Last Reconciled 11/18/24 by Linda Durán PA-C fluticasone propionate 50 mcg/actuation intranasal melatonin mg PO PRN omeprazole 20 mg PO ONCE pyridoxine (vitamin B6) 100 mg PO DAILY 90 days Tobacco use date assessed: 11/18/24 Dental Screening Dental Screen Date: 11/18/24 Did you have a dental visit in the last 12 months?: Yes Did you have a dental problem in the last 6 months where you did not have access to dental care?: No Was dental information given to patient?: Patient has dentist HPI 2 month f/u HPI Details The patient is a 34-year-old male presenting for a follow-up visit regarding heart palpitations and weight management. The patient initially presented with heart palpitations, which led to the use of a Holter monitor that revealed very rare premature atrial contractions. He reports that these palpitations occur very occasionally and are not associated with chest pain or shortness of breath. A normal EKG provided reassurance, and the patient has since been less concerned about the palpitations. The patient has a history of prediabetes, which motivated him to engage in significant lifestyle changes, including weight loss and dietary modifications. He successfully lost approximately 30 pounds through diet and exercise, reducing his weight from 262 pounds to around 230 pounds. The patient aims to further reduce his weight to 180 pounds and has set a goal to participate in a half marathon. The patient experiences insomnia, which he reports is manageable as long as he avoids late-day workouts. He declined a sleep study, attributing improvements in sleep to his weight loss. The patient has been managing gastroesophageal reflux disease with omeprazole but is considering discontinuing the medication as his symptoms have improved with weight loss. He was advised that stopping omeprazole would not cause a rebound effect, but symptoms may return if the medication is discontinued. Social History - Exercise: Engages in regular cardio and aims to run a half marathon. - Nutrition: Follows a diet that includes protein pastries to manage weight. - Weight Management: Lost approximately 30 pounds through diet and exercise. [facility] Medical History (Updated 11/18/24 @ 10:39 by Linda Durán PA-C) Premature atrial contractions Hyperlipidemia Hypertriglyceridemia Pre-diabetes GERD (gastroesophageal reflux disease) Insomnia Obesity (BMI 30-39.9) Body mass index [BMI] 39.0-39.9, adult Establishing care with new doctor, encounter for Heart palpitations History of kidney stones Allergic rhinitis Obesity Social History Housing: House Alcohol intake: current Alcohol intake frequency: a few times a month Patient Tobacco Use Status: Former Tobacco user Tobacco use type: Cigarette Cigarettes Per Day: 2 Years Smoked: 5 or 6 years e-Cigarette/Vaping Use: Former Use service: No Current occupational status: employed Cognitive needs: No Hearing needs: No Vision needs: Yes (rx glasses) Questionnaire PHQ-9 Over the last 2 weeks, how often have you been bothered by any of the following problems? 1. Little interest or pleasure in doing things: not at all 2. Feeling down, depressed, or hopeless: not at all 3. Trouble falling or staying asleep, or sleeping too much: not at all 4. Feeling tired or having little energy: not at all 5. Poor appetite or overeating: not at all 6. Feeling bad about yourself - or that you are a failure or have let yourself or your family down: not at all 7. Trouble concentrating on things, such as reading the newspaper or watching television: not at all 8. Moving or speaking so slowly that other people could have noticed. Or the opposite - being so fidgety or restless that you have been moving around a lot more than usual: not at all 9. Thoughts that you would be better off or of hurting yourself in some way: not at all Total score: 0 Depression Screening Interpretation: Negative Depression Screening Done: Yes 91442 - PHQ-9 Billing: Yes Source: Developed by Drs. Sean Mortensen, Daniela Parr, Gautam Howard and colleagues, with an educational atiya from [employer]. Thrive Questionnaire Date Thrive assessed: 09/17/24 I am a: Patient What is your living situation today?: I have a steady place to live Within the past 12 months, did the food you bought not last and you didn't have the money to get more?: Never true Within the past 12 months, did you worry whether your food would run out before you got money to buy more?: Never true Do you have trouble paying for medicines?: No Do you have trouble getting transportation to medical appointments?: No Do you have trouble paying your heating and electricity bill?: No Do you have trouble taking care of your child, family member or friend?: No Do you have trouble with day-to-day activities such as bathing, preparing meals, shopping, managing finances, etc.?: No Are you currently unemployed and looking for a job?: No Are you interested in more education?: No THRIVE Score: 0 AUDIT C Alcohol Use Questionnaire (AUDIT-C) 1. How often do you have a drink containing alcohol?: 2-4 times a month 2. How many drinks containing alcohol do you have on a typical day when you are drinking?: 1 or 2 Total Score: 2 Score Reviewed/Action Taken: No GATO-7 AMB Questionnaire GATO-7 Date GATO - 7 assessed: 09/17/24 Feeling nervous, anxious, or on edge: 0 = Not at all Not being able to stop or control worryin = Not at all Worrying too much about different things: 0 = Not at all Trouble relaxin = Not at all Being so restless that it is hard to sit still: 0 = Not at all Becoming easily annoyed or irritable: 0 = Not at all Feeling afraid as if something awful might happen: 0 = Not at all Total GATO-7 score (0-4 normal; 5-9 mild; 10-14 moderate; 15-21 severe): 0 Source: Developed by Drs. Sean Mortensen, Daniela Parr, Gautam Howard and colleagues, with an educational atiya from [employer]. GATO-7 Assessment Billing GATO-7 Assessment Tool: GATO-7 Assessment 26642 Review of Systems Const Details: - Cardiovascular: Reports occasional palpitations. Denies chest pain or dyspnea. - Gastrointestinal: Reports improvement in acid reflux symptoms with weight loss. - Neurological: Reports insomnia manageable with lifestyle changes. All systems reviewed & are unremarkable except as noted in HPI and below Physical exam (Primary Care) Vital Signs: Last Vital Signs Temp 97.9 F 11/18/24 09:20 Pulse 84 11/18/24 09:20 Resp 14 11/18/24 09:20 BP 132/80 11/18/24 09:20 Pulse Ox 99 11/18/24 09:20 Oxygen Delivery Method Room Air 11/18/24 09:20 Care Plan Goal for BP management: <140/90 at Goal BMI result Body Mass Index 36.0 BMI Assessment/Plan discussion: High BMI High, discussed plan: lifestyle, weight reduction, dietary, physical activity and alcohol moderation Tobacco/Smoking Status: Tobacco use Status Tobacco use date assessed 11/18/24 11/18/24 09:25 Patient Tobacco Use Status Former Tobacco user 11/18/24 09:25 Tobacco use type Cigarette 11/18/24 09:25 e-Cigarette/Vaping Use Former Use 11/18/24 09:25 PHQ-9: PHQ-9 Score PHQ-9: Total score 0 11/18/24 09:42 Depression Screening Interpretation: Negative Thrive Assessment: Date of Thrive Assessment Date Thrive assessed 09/17/24 11/18/24 09:18 Const Other: Appearance: Alert. Oriented X3. No acute distress. Head: Normal external exam. Normocephalic. Atraumatic. Eyes: Pupils are equal, round, and reactive to light. Extraocular movements intact. Conjunctiva and sclera normal. Eyelids normal. Throat: Pharynx normal. Uvula midline. Moist mucous membranes. Neck: Normal inspection. Neck supple. Full range of motion. Cardiovascular: Normal heart rate and rhythm. Heart sound normal. No murmurs noted. Pulses normal throughout. Occasional premature atrial contractions noted. Respiratory: No respiratory distress. Painless inspiration. Breath sounds normal. No wheezes/rales/rhonchi noted. Chest nontender. No accessory muscle usage noted or decreased air movement noted. Back: Full range of motion noted. Skin: Skin warm and dry. Normal skin color. Normal skin turgor. No rashes/lesions/lacerations noted. Extremities: No lower extremity edema. Extremities exhibit normal range of motion. Extremities nontender. Neuro: Oriented X 3. No motor deficit. No sensory deficit. Reflexes normal. Results Reviewed Results Reviewed: - Holter Monitor: Revealed very rare premature atrial contractions. - EKG: Normal findings. Coding Level of Care Code Est Pt Level 4 (14315) Complex EM visit Add On G2211 Diagnoses Premature atrial contractions I49.1 Insomnia G47.00 Pre-diabetes R73.03 Obesity (BMI 30-39.9) E66.9 Additional Codes GATO-7 Assessment Billing - GATO-7 Assessment Tool: GATO-7 Assessment 16220 ([id number]) PHQ-9 - 56850 - PHQ-9 Billing: Yes ([id number]) Assessment & Plan Assessment & Plan (1) Premature atrial contractions: Code(s): I49.1 - Atrial premature depolarization Category: Medical Plan: The patient experienced occasional palpitations, with a Holter monitor revealing very rare premature atrial contractions. A normal EKG provided reassurance, and the patient was advised that these palpitations are often benign. A referral to cardiology was considered but not deemed necessary at this time. (2) Insomnia: Code(s): G47.00 - Insomnia, unspecified Category: Medical Plan: The patient reports insomnia, which is manageable as long as he avoids late-day workouts. He declined a sleep study, attributing improvements in sleep to his weight loss. (3) Pre-diabetes: Code(s): R73.03 - Prediabetes Category: Medical Plan: The patient has been managing gastroesophageal reflux disease with omeprazole but is considering discontinuing the medication as his symptoms have improved with weight loss. He was advised that stopping omeprazole would not cause a rebound effect, but symptoms may return if the medication is discontinued. (4) Obesity (BMI 30-39.9): Code(s): E66.9 - Obesity, unspecified Category: Medical Plan: Patient's BMI went from 39.8 on 09/17/2024. Today it is 36.0. Patient has lost 30 lb since September until now. Patient to continue improving diet and exercise regimen. Condition is chronic and stable continue to monitor. Plan Plan Patient was informed and verbally consented to the use of an ambient scribe for clinic note documentation during this visit. 1. Premature Atrial Contractions The patient experienced occasional palpitations, with a Holter monitor revealing very rare premature atrial contractions. A normal EKG provided reassurance, and the patient was advised that these palpitations are often benign. A referral to cardiology was considered but not deemed necessary at this time. 2. Insomnia The patient reports insomnia, which is manageable as long as he avoids late-day workouts. He declined a sleep study, attributing improvements in sleep to his weight loss. 3. Gastroesophageal Reflux Disease The patient has been managing gastroesophageal reflux disease with omeprazole but is considering discontinuing the medication as his symptoms have improved with weight loss. He was advised that stopping omeprazole would not cause a rebound effect, but symptoms may return if the medication is discontinued. 4. Prediabetes The patient has a history of prediabetes, which motivated him to engage in significant lifestyle changes, including weight loss and dietary modifications. He successfully lost approximately 30 pounds through diet and exercise, reducing his weight from 262 pounds to around 230 pounds. The patient aims to further reduce his weight to 180 pounds and has set a goal to participate in a half marathon. During the visit, we discussed the patient's heart palpitations, which were found to be benign premature atrial contractions. I reassured him that these are often not a cause for concern, and a cardiology referral was considered but not deemed necessary at this time. We also reviewed his significant weight loss and lifestyle changes, which have positively impacted his prediabetes and gastroesophageal reflux disease. The patient was advised that he could discontinue omeprazole if symptoms remain controlled, with the understanding that symptoms may return if the medication is stopped. We discussed his insomnia, which he manages by avoiding late-day workouts, and he declined a sleep study. Follow-up was planned to monitor his progress and reassess his prediabetes status. Orders: Orders C Reactive Protein Today Z00.00 - Encounter for general adult medical examination without abnormal findings Complete Blood Count Auto Diff Today Z00.00 - Encounter for general adult medical examination without abnormal findings Comprehensive [place]. Panel Fast Today Z00.00 - Encounter for general adult medical examination without abnormal findings Liver Panel Today Z00.00 - Encounter for general adult medical examination without abnormal findings Vitamin B12 and Folate Today Z00.00 - Encounter for general adult medical examination without abnormal findings PSA,Total (Free>4and<10) Today Z00.00 - Encounter for general adult medical examination without abnormal findings Hemoglobin A1c Today Z00.00 - Encounter for general adult medical examination without abnormal findings Lipid Panel Today Z00.00 - Encounter for general adult medical examination without abnormal findings Magnesium Today Z00.00 - Encounter for general adult medical examination without abnormal findings Vitamin D 25-OH Total Today Z00.00 - Encounter for general adult medical examination without abnormal findings TSH reflex Free T4 Today Z00.00 - Encounter for general adult medical examination without abnormal findings Patient Instructions: - Continue current diet and exercise regimen to further reduce weight. - Monitor for any return of gastroesophageal reflux symptoms if discontinuing omeprazole. - Avoid late-day workouts to manage insomnia. - Schedule follow-up for blood work and reassessment of prediabetes status.
[2024-11-18 09:20] VITALS: BP 132/80; PULSE 84; RESP 14; TEMP 36.6; O2SAT 99; BMI 36.0
--- OUTSIDE RECORDS SUMMARY | 2024-11-18 10:22 | XMS_ITS | Clinical Summary ---
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 It is not the complete legal health record.[facility]
== END 2024-11-18 09:50 | disposition home or self-care (01) ==
LOC: HO.HMCSH 09:13
PROVIDERS: PCP Physician Assistant Medical; Visit Provider Physician Assistant Medical
DX: I49.1 Atrial premature depolarization (principal); G47.00 Insomnia, unspecified; R73.03 Prediabetes; E66.9 Obesity, unspecified

== ENCOUNTER → 2024-11-18 09:13 | Outpatient (BNVA) | payer OTHER, SELFPAY | PROVIDERS: PCP Physician Assistant Medical; Visit Provider Physician Assistant Medical | DX: R00.2 Palpitations (principal); R73.03 Prediabetes; G47.00 Insomnia, unspecified; K21.9 Gastro-esophageal reflux disease without esophagitis; I49.1 Atrial premature depolarization; E66.9 Obesity, unspecified; Z68.36 Body mass index [BMI] 36.0-36.9, adult | CPT/HCPCS: 96127 ==

== ENCOUNTER 2024-12-09 06:48 | Outpatient (REF) | payer OTHER, SELFPAY ==
--- NOTE | ~2024-12-09 | CT_ITS ---
CLINICAL HISTORY: N20.0 - Calculus of kidney Exam: CT abdomen and pelvis without IV contrast Comparison: US/SR - US KIDNEY BILATERAL - 07/22/24 08:11 EDT Findings: The lack of intravenous contrast hampers the evaluation of solid organs and the ability to detect and characterize soft tissue abnormalities. Normal lung bases. Nonobstructing bilateral nephrolithiasis, multiple calyceal calculi bilaterally, the largest calculus on the left is 9 mm in the lower pole, the largest calculus on the right is 8 mm in the interpolar region. No ureteral or bladder calculus. No obstructive uropathy. Kidneys, ureters and bladder are otherwise unremarkable. Liver, gallbladder, spleen, pancreas, adrenal glands, reproductive organs demonstrate nothing unusual. Unremarkable GI tract, normal appendix. Unremarkable vasculature, no lymphadenopathy. No ascites or pneumoperitoneum. Unremarkable abdominopelvic wall and osseous structures. Impression: Nonobstructing bilateral nephrolithiasis. This document has been electronically signed by: Reva Brar MD on 12/09/2024 17:03:04
--- OUTSIDE RECORDS SUMMARY | 2024-12-09 06:51 | XMS_ITS | Clinical Summary ---
Author Organization [facility] Address [address] [place] [phone] Phone Care Team Providers Care Editor Publications Name Role Phone Unavailable Primary Care Provider [...] file Medical Devices Not on file Insurance [employer] [facility] PPO RecordSled PPO RecordSled PPO RecordSled PPO RecordSled PPO RecordSled PPO RecordSled PPO RecordSled PPO [employer] [facility] PPO Additional Source Comments The information contained in this document represents components of the legal health record. It is not the complete legal health record.[facility]
== END 2024-12-09 06:49 | disposition home or self-care (01) ==
LOC: HO.CT 06:48
PROVIDERS: PCP Physician Assistant Medical; Visit Provider Nurse Practitioner Family
DX: N20.0 Calculus of kidney (principal)
CPT/HCPCS: 74176

== ENCOUNTER → 2024-12-09 06:50 | Outpatient (BNV) | payer OTHER, SELFPAY | PROVIDERS: PCP Physician Assistant Medical; Visit Provider Radiology Diagnostic Radiology | DX: N20.0 Calculus of kidney (principal) | CPT/HCPCS: 74176 ==

== ENCOUNTER 2025-02-04 07:34 | Outpatient (AMB) | payer OTHER, SELFPAY ==
--- NOTE | 2025-02-04 07:36 | A.OFFVIS_ITS ---
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 Levi wilson. He has a past medical history of obesity, GERD, hyperlipidemia, insomnia, nephrolithiasis, and allergic rhinitis. He presents to the office today for follow-up of his nephrolithiasis. In discussion with the patient today he reports to be doing and feeling well. He denies having had any bothersome urinary issues or concerns since his last office visit here approximately [address] Most recent [address] KUB results were reviewed. 12/05 nonobstructing bilateral renal calculi. Multiple calyceal calculi bilaterally the largest on the left is 9 mm in the largest on the right is 8 mm. No ureteral or bladder calculus is noted. No hydronephrosis noted bilaterally. Kidneys and ureters and bladder are otherwise unremarkable. He continues to attempt to drink plenty of water daily, adds 1 oz of lemon juice to the water daily as well as compliance with vitamin B6. We did discussed at length potential causes and further treatment options and risks and benefits of these treatment options. He has had episodes of bilateral flank pain however describes these episodes as infrequent and feels he manages these well independently. We did discuss surveillance monitoring versus surgical i ntervention and risks and benefits of these options. In office urinalysis results reviewed with the patient today. He otherwise denies any bothersome urinary issues. He denies urinary urgency, urinary frequency, incontinence, nocturia, hematuria, dysuria, foul smelling urine, changes to urinary stream, fever, and or chills. He is happy with his current voiding parameters. All questions were answered. He otherwise offers no other issues or concerns at this time. [facility] Medical History Premature atrial contractions Hyperlipidemia Hypertriglyceridemia Pre-diabetes GERD (gastroesophageal reflux disease) Insomnia Obesity (BMI 30-39.9) Body mass index [BMI] 39.0-39.9, adult Establishing care with new doctor, encounter for Heart palpitations History of kidney stones Allergic rhinitis Obesity Social History Housing: House Alcohol intake: current Alcohol intake frequency: a few times a month Patient Tobacco Use Status: Former Tobacco user Tobacco use type: Cigarette Cigarettes Per Day: 2 Years Smoked: 5 or 6 years e-Cigarette/Vaping Use: Former Use service: No Current occupational status: employed Cognitive needs: No Hearing needs: No Vision needs: Yes (rx glasses) Review of Systems Const All systems reviewed & are unremarkable except as noted in HPI and below Physical Exam Const General: cooperative, healthy appearing, comfortable, no acute distress, well developed, alert and awake Orientation/consciousness: patient oriented x3 Limitations: no limitations HEENT Head: Yes normal to inspection, Yes normocephalic and Yes atraumatic Ears: hearing grossly normal bilaterally Eyes General: appearance normal, both eyes and all related structures Neck Neck: Yes normal visual inspection and Yes trachea midline Chest Chest palpation & inspection: normal inspection of the chest Resp Effort & Inspection: normal respiratory effort and able to speak in complete sentences Cardio Rate: regular rate GI Inspection: Yes normal to inspection General: Yes no CVA tenderness Back/Spine/Pelvis Back: no CVA tenderness Skin General skin exam: no rashes or lesions noted Neuro General: patient oriented x3 Extrem General: Yes normal to inspection Psych Appearance: grossly normal and well kempt Mental Status: mental status grossly normal Speech and movement: Normal speech and movement present and Clear speech present Affect: normal affect Attitude: cooperative Thought process: Normal thought process present Thought content: Normal thought content present Insight: Fair insight present (Psych) Judgement: Fair judgement present (Psych) Results AMB Urinalysis, Automated UA Leukoctes 0 Emma/uL Last Edit by Dipti Colon, [facility] on 02/04/25 07:50 UA Nitrite Negative Last Edit by Dipti Colon, [facility] on 02/04/25 07:50 UA Urobilinogen 0.2 mg/dL Last Edit by Dipti Colon, [facility] on 02/04/25 07:50 UA Protein 0 mg/dL Last Edit by Dipti Anderson, [facility] on 02/04/25 07:50 UA pH 6.0 Last Edit by Dipti Colon, [facility] on 02/04/25 07:50 UA Blood 0 Wale/uL Last Edit by Dipti Colon, [facility] on 02/04/25 07:50 UA Specific Blanket 1.015 Last Edit by Dipti Anderson, [facility] on 02/04/25 07:5 0 UA Ketone Negative Last Edit by [facility], [facility] on 02/04/25 07:50 UA Bilirubin 0 mg/dL Last Edit by Dipti Anderson, [facility] on 02/04/25 07:50 UA Glucose 0 mg/dL Last Edit by Dipti Anderson, [facility] on 02/04/25 07:50 Results Reviewed Results Reviewed: Laboratory Last Values Urine pH (Auto) 6.0 02/04/25 07:50 Specific Blanket (Auto) 1.015 02/04/25 07:50 Urine Protein (Auto) 0 mg/dL 02/04/25 07:50 Glucose (UA)(Auto) 0 mg/dL 02/04/25 07:50 Urine Ketones (Auto) Negative 02/04/25 07:50 Urine Blood (Auto) 0 Wale/uL 02/04/25 07:50 Urine Nitrite (Auto) Negative 02/04/25 07:50 Urine Bilirubin (Auto) 0 mg/dL 02/04/25 07:50 Urine Urobilinogen (Auto) 0.2 mg/dL 02/04/25 07:50 Leukocyte Esterase (Auto) 0 Emma/uL 02/04/25 07:50 Date of Service: 12/09/24 Procedure(s): CT kidney stone Findings: The lack of intravenous contrast hampers the evaluation of solid organs and the ability to detect and characterize soft tissue abnormalities. Normal lung bases. Nonobstructing bilateral nephrolithiasis, multiple calyceal calculi bilaterally, the largest calculus on the left is 9 mm in the lower pole, the largest calculus on the right is 8 mm in the interpolar region. No ureteral or bladder calculus. No obstructive uropathy. Kidneys, ureters and bladder are otherwise unremarkable. Liver, gallbladder, spleen, pancreas, adrenal glands, reproductive organs demonstrate nothing unusual. Unremarkable GI tract, normal appendix. Unremarkable vasculature, no lymphadenopathy. No ascites or pneumoperitoneum. Unremarkable abdominopelvic wall and osseous structures. Impression: Nonobstructing bilateral nephrolithiasis. Assessment & Plan Assessment & Plan (1) Nephrolithiasis: Code(s): N20.0 - Calculus of kidney Category: Medical Plan: Risks, benefits and alternatives to therapy were discussed. These include but are not limited to infection, bleeding, damage to local organs and tissues, need for further interventions. ? Anesthetic risks regarding cardiac arrhythmia, blood clots, and potential mortality were discussed. The patient understands the typical recovery time and the outpatient nature of the procedure. After consideration of these risks the patient gives full informed consent and they wish to move ahead with the procedure. (2) Flank pain: Code(s): R10.A0 - Flank pain, unspecified side Category: Medical Plan: Ureteroscopy We discussed the nature of the decision and reasonable alternatives for performing ureteroscopy. Options such as medical therapy were discussed. Interventions include chemical dissolution, ESWL, ureteroscopy with laser lithotripsy and stent placement, PCNL. The relative uncertainties and benefits related to each alternate procedure were adequately discussed. General surgical risks including, but not limited to - pain, bleeding, infection, myocardial infarction, pulmonary embolus, deep vein thrombosis and cerebrovascular accident which may result in further hospitalization were discussed.? Full disclosure of the procedure as well as all major risks, benefits and complications were discussed including but not limited to damage to the urethra, bladder and kidney infection, damage to the ureter, stent migration or malposition, scarring to the renal pelvis, remnant stone fragments, subsequent stone passage with need for secondary procedures. The overall secondary procedure rate is approximately 10-15%.? The overall clearance rate is approximately 90-95%. Success of the procedure in the short-term does not necessarily guarantee that long-term success will be maintained. Suitable follow up will need to be maintained. The patient showed understanding of discussion and wishes to proceed with - cystoscopy, bilateral retrograde, bilateral ureteroscopy, bilateral possible lithotripsy/stone basketing and bilateral stent placements. Plan In office urinalysis results reviewed the patient today; as noted above. Most recent CT KUB results reviewed with the patient today; as noted above. We did discuss further treatment options to include surveillance monitoring verses surgical intervention; risks and benefits of these interventions were discussed. He currently denies any bothersome urinary issues. We did discuss bilateral ureteroscopy; risks and benefits. All questions were answered. Continue with adequate hydration, adding 1 oz of lemon juice to water daily, and vitamin B6 as discussed and prescribed. We did discuss near future metabolic workup for stone prevention and management. Will schedule for bilateral ureteroscopy as discussed Follow-up per doctor's orders; or sooner with any issues, concerns, and or questions. Patient Instructions: The patient had an opportunity to ask questions regarding the treatment plan. All questions were answered. Physical exam, labs, and imaging were discussed and reviewed in detail. As well as risks, benefits, and discussion of treatment choices. No major barriers to understanding were identified. The patient expressed understanding and agreement with the above treatment plan. The patient was made aware they should contact our office by phone for worsening of their current condition, the appearance of new symptoms, or with any questions or concerns. Compliance is encouraged with any medications and follow up testing that is ordered. It is a privilege to be allowed the opportunity to participate in? your urological care.? Again, if you have any questions or concerns If you have any questions or concerns please do not hesitate to contact me. The office is [phone]. This note is constructed using voice recognition software. While every effort has been made to ensure accuracy work and family life consultant errors may have been included. Yours sincerely, JENNIFER Bains Coding Level of Care Code Est Pt Level 4 (40161) Diagnoses Nephrolithiasis N20.0 Flank pain R10.A0
--- OUTSIDE RECORDS SUMMARY | 2025-02-04 07:37 | XMS_ITS | Clinical Summary ---
Author Organization [facility] Address [address] [place] [phone] Phone Care Team Providers Care Dj Instructor Name Role Phone Unavailable Primary Care Provider [...] file Medical Devices Not on file Insurance [id number] [facility] PPO [employer] PPO [employer] PPO [employer] PPO [employer] PPO [employer] PPO [employer] PPO [employer] PPO [employer] [facility] PPO Additional Source Comments The information contained in this document represents components of the legal health record. It is not the complete legal health record.[facility]
== END 2025-02-04 08:24 | disposition home or self-care (01) ==
LOC: HO.HUSH 07:35
PROVIDERS: PCP Internal Medicine; Visit Provider Nurse Practitioner Family
DX: N20.0 Calculus of kidney (principal); R10.A0 Flank pain, unspecified side
CPT/HCPCS: 99214